=== PATIENT | male | born 1955 | race Caucasian/White ===

== ENCOUNTER → 2021-04-01 | Outpatient (CLI) | payer MEDICARE ==
[~2021-04-01] MED LIST: BUMETANIDE0.5 MG PO; BUMETANIDE2 MG PO; ECOTRIN81 MG PO; FENOFIBRATE145 MG PO; GABAPENTIN300 MG PO; HYDRALAZINE HCL25 MG PO; IMDUR ER TAB 3030 MG PO; METOPROLOL TART25 MG PO; NORCO 7.5-3251 EACH PO; PLAVIX 75 MG TA75 MG PO; PROTONIX 40 MG40 M1 PO; SYNTHROID75 MCG PO; ZETIA 10 MG TAB10 MG PO
== END ==
LOC: ECHO 12-08 10:00 → HEART 5 01-19 15:30
DX: I50.22 Chronic systolic (congestive) heart failure (principal); I51.7 Cardiomegaly; I50.1 Left ventricular failure, unspecified; Z95.0 Presence of cardiac pacemaker
CPT/HCPCS: 93306